=== PATIENT | male | born 1990 | race Two or more races ===

== ENCOUNTER 2019-06-21 16:30 | Emergency (ER) | payer BC, OTHER ==
[~2019-06-21] VITALS: Ht 182.9 cm; Wt 188.2 kg
[2019-06-21 16:44] VITALS: BP 123/89
[2019-06-21] MEDS ORDERED: HYDROcodone-ACET 7.5/325MG TAB PO ONE (17:00)
== END 2019-06-21 18:59 | disposition home or self-care (01) ==
LOC: EDBD 16:30 → ER 16:30
DX: S01.01XA Laceration without foreign body of scalp, initial encounter (principal); V89.2XXA Person injured in unspecified motor-vehicle accident, traffic, initial encounter; Y93.89 Activity, other specified; Y92.89 Other specified places as the place of occurrence of the external cause; Y99.8 Other external cause status
CPT/HCPCS: 12004; 70250; 72040; 72070